=== PATIENT | male | born 1945 | race Caucasian/White ===

== ENCOUNTER 2017-08-04 23:42 | Emergency (ER) | payer MEDICARE ==
[~2017-08-04] VITALS: Ht 180.3 cm; Wt 90.5 kg
[2017-08-04 23:51] VITALS: BP_SYST 154; BP_SYST 174; BP_DIAS 81; BP_DIAS 82; PULSE 87; RESP 18; TEMP 98.6
[2017-08-05] MEDS ORDERED: APIX5TAB PO (00:15)
[2017-08-05] MEDS ORDERED: VERA80TA PO (00:15)
[2017-08-05] MEDS ORDERED: ASPIRIN 81 MG CHEW TAB PO ONE (00:30)
[2017-08-05] MEDS ORDERED: SODIUM CHLORIDE 0.9% FLUSH 10 ML FLUSH IVF PRN (00:30)
[2017-08-05 00:31] VITALS: O2SAT 97
[2017-08-05 00:36] VITALS: BP 132/84; PULSE 90; RESP 18; O2SAT 96
[2017-08-05 00:45] LABS: AUTOMATED NEUTROPHIL # 6.9 TH/MM3 (1.8-7.7); BASOPHIL # 0.1 TH/MM3 (0-0.2); EOSINOPHIL # 0.8 TH/MM3 (0-0.4); EOSINOPHIL % 5.5 % (0.0-4.0); HEMATOCRIT 48.8 % (39.0-51.0); HEMOGLOBIN 16.1 GM/DL (13.0-17.0); LYMPH % 41.2 % (9.0-44.0); LYMPHOCYTE # 6.1 TH/MM3 (1.0-4.8); MEAN CELL VOLUME 89.5 FL (80.0-100.0); MEAN CORPUSCULAR HEMOGLOBIN 29.6 PG (27.0-34.0); MEAN CORPUSCULAR HGB CONC 33.1 % (32.0-36.0); MEAN PLATELET VOLUME 10.2 FL (7.0-11.0); NEUT % 45.3 % (16.0-70.0); PLATELET COUNT 271 TH/MM3 (150-450); RED BLOOD COUNT 5.46 MIL/MM3 (4.50-5.90); RED CELL DISTRIBUTION WIDTH 14.5 % (11.6-17.2); WHITE BLOOD COUNT 14.9 TH/MM3 (4.0-11.0)
--- NOTE | 2017-08-05 00:46 | PD ---
HPI Chief Complaint: Chest Pain Time Seen by Provider: 00:13 Travel History International Travel<30 days: No Contact w/Intl Traveler<30days: No Traveled to known affect area: No History of Present Illness HPI The patient is a 71-year-old male with a history chronic of atrial fibrillation who complains of a minimal discomfort in his mid sternal area and pain in both arms. The pain in both arms started around 11 PM yesterday evening. He did have nausea and vomiting after he took an aspirin. He denies any shortness of breath, diaphoresis. He denies any syncopal or near syncopal spells. His last stress test she states was over [address] Pichardo is his temporary help agency referral clerk. The patient does smoke cigars. PFSH Past Medical History Hx Anticoagulant Therapy: Yes (eloquis) Tetanus Vaccination: > 5 Years Influenza Vaccination: No Past Surgical History Cholecystectomy: Yes Social History Alcohol Use: No Tobacco Use: Yes (1PPD) Substance Use: No Allergies-Medications (Allergen,Severity, Reaction): Coded Allergies: No Known Drug Allergies (Verified Allergy, Unknown, 08/05/17) Reported Meds & Prescriptions Reported Meds & Active Scripts Active Reported Verapamil (Verapamil HCl) 80 Mg Tab 80 Mg PO BID Eliquis (Apixaban) 5 Mg Tab 5 Mg PO BID Review of Systems Except as stated in HPI: all other systems reviewed are Neg Physical Exam Narrative GENERAL: The patient is alert, oriented 3 in minimal apparent distress with his arm aching. The arm aching is almost completely subsided in the chest pain has completely subsided. His vital signs repeated show blood pressure 154/81 but are otherwise normal. He does smell of cigar smoke. SKIN: Focused skin assessment warm/dry. HEAD: Atraumatic. Normocephalic. EYES: Pupils equal and round. No scleral icterus. No injection or drainage. ENT: No nasal bleeding or discharge. Mucous membranes pink and moist. NECK: Trachea midline. No JVD. CARDIOVASCULAR: Regular rate and rhythm. No murmur appreciated. I cannot reproduce the patient's chest pain by pressing on the chest wall. RESPIRATORY: No accessory muscle use. Clear to auscultation. Breath sounds equal bilaterally. GASTROINTESTINAL: Abdomen soft, non-tender, nondistended. Hepatic and splenic margins not palpable. MUSCULOSKELETAL: No obvious deformities. No clubbing. No cyanosis. No edema. NEUROLOGICAL: Awake and alert. No obvious cranial nerve deficits. Motor grossly within normal limits. Normal speech. PSYCHIATRIC: Appropriate mood and affect; insight and judgment normal. Data Data Last Documented VS Vital Signs Date Time Temp Pulse Resp B/P (MAP) Pulse Ox O2 Delivery O2 Flow Rate FiO2 08/05/17 00:36 90 18 132/84 (100) 96 Room Air 08/04/17 23:51 98.6 Orders Orders Electrocardiogram (08/05/17 00:30) Ckmb (Isoenzyme) Profile (08/05/17 00:30) Complete Blood Count With Diff (08/05/17 00:30) Comprehensive Metabolic Panel (08/05/17 00:30) Magnesium (Mg) (08/05/17 00:30) Prothrombin Time / Inr (Pt) (08/05/17 00:30) Act Partial Throm Time (Ptt) (08/05/17 00:30) Troponin I (08/05/17 00:30) Ecg Monitoring (08/05/17 00:30) Iv Access Insert/Monitor (08/05/17 00:30) Oximetry (08/05/17 00:30) Oxygen Administration (08/05/17 00:30) Aspirin Chew (Aspirin Chew) (08/05/17 00:30) Sodium Chloride 0.9% Flush (Ns Flush) (08/05/17 00:30) Chest, Pa & Lat (08/05/17 00:30) Labs Laboratory Tests Test 08/05/17 00:00 White Blood Count 14.9 TH/MM3 Red Blood Count 5.46 MIL/MM3 Hemoglobin 16.1 GM/DL Hematocrit 48.8 % Mean Corpuscular Volume 89.5 FL Mean Corpuscular Hemoglobin 29.6 PG Mean Corpuscular Hemoglobin Concent 33.1 % Red Cell Distribution Width 14.5 % Platelet Count 271 TH/MM3 Mean Platelet Volume 10.2 FL Neutrophils (%) (Auto) 45.3 % Lymphocytes (%) (Auto) 41.2 % Monocytes (%) (Auto) 7.0 % Eosinophils (%) (Auto) 5.5 % Basophils (%) (Auto) 1.0 % Neutrophils # (Auto) 6.9 TH/MM3 Lymphocytes # (Auto) 6.1 TH/MM3 Monocytes # (Auto) 1.0 TH/MM3 Eosinophils # (Auto) 0.8 TH/MM3 Basophils # (Auto) 0.1 TH/MM3 CBC Comment AUTO DIFF Differential Total Cells Counted 100 Neutrophils % (Manual) 48 % Lymphocytes % 44 % Monocytes % 5 % Eosinophils % 3 % Neutrophils # (Manual) 7.2 TH/MM3 Differential Comment FINAL DIFF MANUAL Platelet Estimate NORMAL Platelet Morphology Comment NORMAL Red Cell Morphology Comment NORMAL Prothrombin Time 12.7 SEC Prothromb Time International Ratio 1.3 RATIO Activated Partial Thromboplast Time 31.9 SEC Blood Urea Nitrogen 22 MG/DL Creatinine 1.40 MG/DL Random Glucose 102 MG/DL Total Protein 7.9 GM/DL Albumin 3.9 GM/DL Calcium Level 8.7 MG/DL Magnesium Level 2.0 MG/DL Alkaline Phosphatase 97 U/L Aspartate Amino Transf (AST/SGOT) 15 U/L Alanine Aminotransferase (ALT/SGPT) 16 U/L Total Bilirubin 0.4 MG/DL Sodium Level 136 MEQ/L Potassium Level 3.4 MEQ/L Chloride Level 101 MEQ/L Carbon Dioxide Level 27.5 MEQ/L Anion Gap 8 MEQ/L Estimat Glomerular Filtration Rate 50 ML/MIN Total Creatine Kinase 90 U/L Troponin I LESS THAN 0.02 NG/ML MDM Medical Decision Making Medical Screen Exam Complete: Yes Emergency Medical Condition: Yes Medical Record Reviewed: Yes Interpretation(s) The EKG shows atrial fibrillation with a controlled rate of 89. There is no acute ST elevation or depression present. The APTT is 31.9 and the ProTime is 12.7 with an INR 1.3. The complete metabolic profile shows a BUN of 22, creatinine 1.4, GFR 50 and potassium 3.4 but is otherwise unremarkable. The cardiac enzymes are normal. The white count is 14,900 but is otherwise unremarkable. Differential Diagnosis Acute coronary syndrome, chest pain etiology undetermined, electrolyte disorder, Narrative Course The patient's pain in the arms and the chest is completely resolved. I offered the patient a stress test done this morning and also mentioned that he could call Dr. Pichardo later on this morning and set up a stress test going through Dr. Pichardo. The patient strongly preferred to go to Dr. Pichardo. The patient is told if he gets this pain again he needs to call an ambulance and come immediately to the emergency department and we find nothing we will want to do the stress test here. Impression: Chest/arm pain etiology undetermined Diagnosis Primary Impression: Chest pain of unknown etiology Additional Instructions: As we discussed, if he gets the chest pain again just call the amylase and return to emergency department and we will put her in the hospital for a rule out or into the chest pain center. It is hoped that you can get a stress test soon with Dr. Pichardo. Disposition: 01 DISCHARGE HOME Condition: Stable Blaze Kathleen MD Aug 05, 2017 00:46
[2017-08-05 00:54] LABS: CHLORIDE 101 MEQ/L (98-107); SODIUM (NA) 136 MEQ/L (136-145)
[2017-08-05 00:57] LABS: ALBUMIN 3.9 GM/DL (3.4-5.0); BICARBONATE 27.5 MEQ/L (21.0-32.0); CALCIUM 8.7 MG/DL (8.5-10.1)
[2017-08-05 00:58] LABS: BLOOD UREA NITROGEN 22 MG/DL (7-18); GLUCOSE,RANDOM 102 MG/DL (74-106); INTERNATIONAL NORMALIZED RATIO 1.3 RATIO; PROTHROMBIN TIME - PATIENT 12.7 SEC (9.8-11.6)
[2017-08-05 01:01] LABS: ALT (GPT) 16 U/L (12-78); AST (GOT) 15 U/L (15-37); GLOMERULAR FILTRATION RATE 50 ML/MIN (>89)
[2017-08-05 01:02] LABS: TOTAL BILIRUBIN ADULT 0.4 MG/DL (0.2-1.0); TOTAL PROTEIN 7.9 GM/DL (6.4-8.2)
[2017-08-05 01:03] LABS: ALKALINE PHOSPHATASE 97 U/L (45-117); LYMPHOCYTES 44 % (9-44); MONOCYTES 5 % (0-8); NEUTROPHIL # MANUAL DIFF 7.2 TH/MM3 (1.8-7.7); POLYS (SEG NEUTROPHILS) 48 % (16-70)
[2017-08-05 01:06] LABS: TROPONIN I LESS THAN 0.02 NG/ML (0.02-0.05)
--- NOTE | 2017-08-05 01:18 | RADRPT ---
EXAM DATE/TIME: 08/05/2017 00:52 [facility] COMPARISON: No previous studies available for comparison. INDICATIONS : Chest pain and bilateral arm numbness. MEDICAL HISTORY : None. SURGICAL HISTORY : None. ENCOUNTER: Initial ACUITY: 1 day PAIN SCORE: 5/10 LOCATION: Bilateral chest FINDINGS: PA and lateral views of the chest demonstrate the lungs to be symmetrically aerated without evidence of mass, infiltrate or effusion. The cardiomediastinal contours are unremarkable. Osseous structure s are intact. CONCLUSION: No acute disease. Lopez Odom MD on August 05, 2017 at 1:17 Board Certified Radiologist. This report was verified electronically.
[2017-08-05 02:05] VITALS: BP 125/84; PULSE 84; RESP 18; O2SAT 97
--- NOTE | 2017-08-05 22:07 | EKG ---
Date Performed: 08/04/2017 Time Performed: 23:44:06 PTAGE: 71 years EKG: ATRIAL FIBRILLATION ABNORMAL QRS-T ANGLE ABNORMAL ECG INTERPRETATION BASED ON A DEFAULT AGE OF 40 YEARS NO PREVIOUS TRACING DOCTOR: Preston Mackenzie Interpretating Date/Time 08/05/2017 22:07:20
== END 2017-08-05 02:06 | disposition home or self-care (01) ==
LOC: PHED 23:42
DX: R07.9 Chest pain, unspecified (principal); I48.91 Unspecified atrial fibrillation; M79.601 Pain in right arm; R11.2 Nausea with vomiting, unspecified; Z79.01 Long term (current) use of anticoagulants; Z72.0 Tobacco use
CPT/HCPCS: 71046; 80053; 82550; 83735; 84484; 85007; 85027; 85610; 85730; 93005

== ENCOUNTER 2017-08-06 08:55 | Inpatient (IN) | payer MEDICARE ==
[2017-08-06] VITALS (7 sets, daily range): BP systolic 127–151; BP diastolic 67–99; PULSE 79–111; RESP 14–22; TEMP 97.5–98.4; O2SAT 94–99
[~2017-08-06] VITALS: Ht 182.9 cm; Wt 93.1 kg
[~2017-08-06 08:55] MED LIST: APIX5TAB PO; VERA80TA PO
[2017-08-06] MEDS ORDERED: SODIUM CHLORIDE 0.9% FLUSH 10 ML FLUSH IVF PRN (09:15)
[2017-08-06 09:38] LABS: AUTOMATED NEUTROPHIL # 7.1 TH/MM3 (1.8-7.7); BASOPHIL # 0.2 TH/MM3 (0-0.2); BASOPHIL % 1.4 % (0.0-2.0); EOSINOPHIL # 0.6 TH/MM3 (0-0.4); EOSINOPHIL % 4.9 % (0.0-4.0); HEMATOCRIT 50.9 % (39.0-51.0); HEMOGLOBIN 17.4 GM/DL (13.0-17.0); LYMPH % 23.8 % (9.0-44.0); LYMPHOCYTE # 2.8 TH/MM3 (1.0-4.8); MEAN CELL VOLUME 88.9 FL (80.0-100.0); MEAN CORPUSCULAR HEMOGLOBIN 30.4 PG (27.0-34.0); MEAN CORPUSCULAR HGB CONC 34.2 % (32.0-36.0); MEAN PLATELET VOLUME 9.6 FL (7.0-11.0); MONO % 9.1 % (0.0-8.0); MONOCYTE # 1.1 TH/MM3 (0-0.9); NEUT % 60.8 % (16.0-70.0); PLATELET COUNT 257 TH/MM3 (150-450); RED BLOOD COUNT 5.72 MIL/MM3 (4.50-5.90); RED CELL DISTRIBUTION WIDTH 15.2 % (11.6-17.2); WHITE BLOOD COUNT 11.7 TH/MM3 (4.0-11.0)
[2017-08-06 09:48] LABS: INTERNATIONAL NORMALIZED RATIO 1.3 RATIO; PROTHROMBIN TIME - PATIENT 13.1 SEC (9.8-11.6)
[2017-08-06 10:04] LABS: ALBUMIN 3.9 GM/DL (3.4-5.0); ALKALINE PHOSPHATASE 90 U/L (45-117); ALT (GPT) 16 U/L (12-78); AST (GOT) 21 U/L (15-37); BICARBONATE 26.5 MEQ/L (21.0-32.0); BLOOD UREA NITROGEN 14 MG/DL (7-18); CALCIUM 9.2 MG/DL (8.5-10.1); CHLORIDE 103 MEQ/L (98-107); CREATININE 1.32 MG/DL (0.60-1.30); GLOMERULAR FILTRATION RATE 53 ML/MIN (>89); GLUCOSE,RANDOM 112 MG/DL (74-106); MAGNESIUM 2.3 MG/DL (1.5-2.5); SODIUM (NA) 137 MEQ/L (136-145); TOTAL BILIRUBIN ADULT 0.6 MG/DL (0.2-1.0); TOTAL PROTEIN 7.6 GM/DL (6.4-8.2)
[2017-08-06 10:09] LABS: TROPONIN I 0.79 NG/ML (0.02-0.05)
--- NOTE | 2017-08-06 10:11 | PD ---
HPI Chief Complaint: Cardiac Complaint Time Seen by Provider: 09:12 Travel History International Travel<30 days: No Contact w/Intl Traveler<30days: No Traveled to known affect area: No History of Present Illness HPI Patient a 71-year-old male presents emergency department at the insistence of his automotive alignment specialist Dr. Pichardo for consideration of catheterization. Patient states 2 nights ago he went to lay down in suddenly had bilateral arm pain as well as tightness in the center of his chest associate with some diaphoresis increasing weakness over the past few days. He states he has never had a cardiac catheterization but did have a stress test 2 years ago with a heart group in set it with normal. Has a history of atrial fibrillation on Eliquis last took his Eliquis last night. Has not had an aspirin at today. Currently he states he is asymptomatic. Denies any chest pain or shortness of breath at this time. No nausea no vomiting. States symptoms are resolved, for the past 2 nights, contacts as above, associated signs symptoms as above, resolved PFSH Past Medical History Hx Anticoagulant Therapy: Yes (eloquis) Atrial Fibrillation: Yes (ELIQUIS) Diminished Hearing: Yes Tetanus Vaccination: Unknown ?: Not Past Surgical History Cholecystectomy: Yes Social History Alcohol Use: Yes (RARELY) Tobacco Use: Yes (1PPD) Substance Use: No Allergies-Medications (Allergen,Severity, Reaction): Coded Allergies: No Known Drug Allergies (Verified Allergy, Unknown, 08/05/17) Reported Meds & Prescriptions Reported Meds & Active Scripts Active Reported Verapamil (Verapamil HCl) 80 Mg Tab 80 Mg PO BID Eliquis (Apixaban) 5 Mg Tab 5 Mg PO BID Review of Systems Except as stated in HPI: all other systems reviewed are Neg Physical Exam Narrative GENERAL: WD/WN in nad SKIN: Focused skin assessment warm/dry. HEAD: Atraumatic. Normocephalic. EYES: Pupils equal and round. No scleral icterus. No injection or drainage. ENT: No nasal bleeding or discharge. Mucous membranes pink and moist. NECK: Trachea midline. No JVD. CARDIOVASCULAR: Regular rate and rhythm. No murmur appreciated. 2+ bilateral pulses in all 4 extremities, no MGR RESPIRATORY: No accessory muscle use. Clear to auscultation. Breath sounds equal bilaterally. GASTROINTESTINAL: Abdomen soft, non-tender, nondistended. Hepatic and splenic margins not palpable. MUSCULOSKELETAL: No obvious deformities. No clubbing. No cyanosis. No edema. NEUROLOGICAL: Awake and alert. No obvious cranial nerve deficits. Motor grossly within normal limits. Normal speech. PSYCHIATRIC: Appropriate mood and affect; insight and judgment normal. Data Data Last Documented VS Vital Signs Date Time Temp Pulse Resp B/P (MAP) Pulse Ox O2 Delivery O2 Flow Rate FiO2 08/06/17 09:20 98 Room Air 08/06/17 09:20 101 22 127/90 (102) 08/06/17 09:00 98.4 Orders Orders Electrocardiogram (08/06/17 09:12) Ckmb (Isoenzyme) Profile (08/06/17 09:12) Complete Blood Count With Diff (08/06/17 09:12) Comprehensive Metabolic Panel (08/06/17 09:12) Magnesium (Mg) (08/06/17 09:12) Prothrombin Time / Inr (Pt) (08/06/17 09:12) Act Partial Throm Time (Ptt) (08/06/17 09:12) Troponin I (08/06/17 09:12) Ecg Monitoring (08/06/17 09:12) Iv Access Insert/Monitor (08/06/17 09:12) Oximetry (08/06/17 09:12) Oxygen Administration (08/06/17 09:12) Sodium Chloride 0.9% Flush (Ns Flush) (08/06/17 09:15) CKMB (08/06/17 09:15) CKMB% (08/06/17 09:15) Aspirin Chew (Aspirin Chew) (08/06/17 10:45) Consult Cardiology (08/06/17 ) Labs Laboratory Tests Test 08/06/17 09:15 White Blood Count 11.7 TH/MM3 Red Blood Count 5.72 MIL/MM3 Hemoglobin 17.4 GM/DL Hematocrit 50.9 % Mean Corpuscular Volume 88.9 FL Mean Corpuscular Hemoglobin 30.4 PG Mean Corpuscular Hemoglobin Concent 34.2 % Red Cell Distribution Width 15.2 % Platelet Count 257 TH/MM3 Mean Platelet Volume 9.6 FL Neutrophils (%) (Auto) 60.8 % Lymphocytes (%) (Auto) 23.8 % Monocytes (%) (Auto) 9.1 % Eosinophils (%) (Auto) 4.9 % Basophils (%) (Auto) 1.4 % Neutrophils # (Auto) 7.1 TH/MM3 Lymphocytes # (Auto) 2.8 TH/MM3 Monocytes # (Auto) 1.1 TH/MM3 Eosinophils # (Auto) 0.6 TH/MM3 Basophils # (Auto) 0.2 TH/MM3 CBC Comment DIFF FINAL Differential Comment Prothrombin Time 13.1 SEC Prothromb Time International Ratio 1.3 RATIO Activated Partial Thromboplast Time 31.5 SEC Blood Urea Nitrogen 14 MG/DL Creatinine 1.32 MG/DL Random Glucose 112 MG/DL Total Protein 7.6 GM/DL Albumin 3.9 GM/DL Calcium Level 9.2 MG/DL Magnesium Level 2.3 MG/DL Alkaline Phosphatase 90 U/L Aspartate Amino Transf (AST/SGOT) 21 U/L Alanine Aminotransferase (ALT/SGPT) 16 U/L Total Bilirubin 0.6 MG/DL Sodium Level 137 MEQ/L Potassium Level 4.3 MEQ/L Chloride Level 103 MEQ/L Carbon Dioxide Level 26.5 MEQ/L Anion Gap 8 MEQ/L Estimat Glomerular Filtration Rate 53 ML/MIN Total Creatine Kinase 101 U/L Creatine Kinase MB 4.7 NG/ML Troponin I 0.79 NG/ML MDM Medical Decision Making Medical Screen Exam Complete: Yes Emergency Medical Condition: Yes Differential Diagnosis ACS, STEMI, NSTEMI, Narrative Course Patient 71-year-old male roomed in the emergency department, asymptomatic, vital signs stable, atrial fibrillation on monitor but rate relatively controlled, patient discussed with Dr. Gurdeep toth covering for Dr. pichardo, recommends holding Eliquis in when Eliquis his out of his system will proceed with cardiac catheterization no heparinization for now, he has given full dose of aspirin, no chest pain while in the emergency department. Had chest x-ray 2 days ago at [facility] which was not negative. Will be admitted to the resident service under Dr. Ragsdale for CIC. Diagnosis Primary Impression: NSTEMI (non-ST elevated myocardial infarction) Admitting Information Admitting Physician Requests: Admit Condition: Stable Man Hung MD Aug 06, 2017 10:11
[2017-08-06] MEDS ORDERED: ASPIRIN 81 MG CHEW TAB CHEW ONE (10:45)
--- NOTE | 2017-08-06 11:41 | HHI.HP ---
HPI Service Family Medicine Primary Care Physician No Primary Care Physician Admission Diagnosis NSTEMI Diagnoses: International Travel<30 Days: No Contact w/Intl Traveler<30days: No Known Affected Area: No History of Present Illness Patient is a 71-year-old Male with PMHx of A. fib (on Eliquis) that was sent to ED by his email producer (Dr. Pichardo) for cath procedure due to sxs suggestive of [place] that the patient had 2 days ago. Patient reports that 2 days ago went he to [facility] ED after he developed aching in both arms, chest tightness, and cold sweats. At that ED visit he was told he was not having a heart attack and was offered to have stress test done which he declined and instead decided to follow up with his email producer out patient. Currently patient is asymptomatic. Denies CP, SOB, N/V or diaphoresis. He went to see his email producer this morning and based on the sxs he had 2 days ago his email producer suggested he come to the ED for a heart cath procedure. Of note pt stated he took Eliquis 5mg last night. In the ED pt found to be tachycardic HR 100s with elevated troponin of 0.79. Pt received an asa 325mg and cardiology was consulted. Review of Systems Constitutional: DENIES: Fatigue, Fever, Weight loss, Chills, Change in appetite , Night Sweats Eyes: DENIES: Blurred vision, Vision loss Ears, nose, mouth, throat: DENIES: Hearing loss, Throat pain, Ear Pain Respiratory: DENIES: Cough, Shortness of breath Cardiovascular: DENIES: Chest pain, Palpitations Gastrointestinal: DENIES: Abdominal pain, Nausea, Vomiting Genitourinary: DENIES: Urinary frequency, Dysuria Musculoskeletal: DENIES: Joint pain, Joint Swelling, Back pain Integumentary: DENIES: Rash Hematologic/lymphatic: DENIES: Bruising Neurologic: DENIES: Headache, Localized weakness Past Family Social History Past Medical History A. fib Past Surgical History Cholecystectomy, Reported Medications verapamil 80mg QD Eliquis 5mg QD Allergies: Coded Allergies: No Known Drug Allergies (Verified Allergy, Unknown, 08/05/17) Family History Father- [place] Social History -Pt is retired -Lives with -Smokin pack per day for 50yrs -Denies alcohol or illicit drugs use Physical Exam Vital Signs Vital Signs Date Time Temp Pulse Resp B/P (MAP) Pulse Ox O2 Delivery O2 Flow Rate FiO2 08/06/17 11:09 89 15 142/90 (107) 98 Room Air 08/06/17 09:20 98 Room Air 08/06/17 09:20 101 22 127/90 (102) 97 Room Air 08/06/17 09:00 98.4 102 14 151/99 (116) 99 Physical Exam GENERAL: This is a well-nourished, well-developed patient, in no apparent distress. SKIN: No rashes, ecchymoses or lesions. Cool and dry. HEAD: Atraumatic. Normocephalic. No temporal or scalp tenderness. EYES: Pupils equal round and reactive. Extraocular motions intact. No scleral icterus. No injection or drainage. ENT: Nose without bleeding, purulent drainage or septal hematoma. Throat without erythema, tonsillar hypertrophy or exudate. Uvula midline. Airway patent. NECK: Trachea midline. No JVD or lymphadenopathy. Supple, nontender, no meningeal signs. CARDIOVASCULAR: Normal S1 and S2. Irregular rhythm without murmurs, gallops, or rubs. RESPIRATORY: Clear to auscultation. Breath sounds equal bilaterally. No wheezes , rales, or rhonchi. GASTROINTESTINAL: Abdomen soft, non-tender, nondistended. No hepato-splenomegaly , or palpable masses. No guarding. MUSCULOSKELETAL: Extremities without clubbing, cyanosis, or edema. No joint tenderness, effusion, or edema noted. No calf tenderness. Negative Homans sign bilaterally. +2 DP pulses BL NEUROLOGICAL: Awake and alert. Cranial nerves II through XII intact. Motor and sensory grossly within normal limits. Five out of 5 muscle strength in all muscle groups. Normal speech. Laboratory Laboratory Tests Test 08/06/17 09:15 White Blood Count 11.7 Red Blood Count 5.72 Hemoglobin 17.4 Hematocrit 50.9 Mean Corpuscular Volume 88.9 Mean Corpuscular Hemoglobin 30.4 Mean Corpuscular Hemoglobin Concent 34.2 Red Cell Distribution Width 15.2 Platelet Count 257 Mean Platelet Volume 9.6 Neutrophils (%) (Auto) 60.8 Lymphocytes (%) (Auto) 23.8 Monocytes (%) (Auto) 9.1 Eosinophils (%) (Auto) 4.9 Basophils (%) (Auto) 1.4 Neutrophils # (Auto) 7.1 Lymphocytes # (Auto) 2.8 Monocytes # (Auto) 1.1 Eosinophils # (Auto) 0.6 Basophils # (Auto) 0.2 CBC Comment DIFF FINAL Differential Comment Prothrombin Time 13.1 Prothromb Time International Ratio 1.3 Activated Partial Thromboplast Time 31.5 Blood Urea Nitrogen 14 Creatinine 1.32 Random Glucose 112 Total Protein 7.6 Albumin 3.9 Calcium Level 9.2 Magnesium Level 2.3 Alkaline Phosphatase 90 Aspartate Amino Transf (AST/SGOT) 21 Alanine Aminotransferase (ALT/SGPT) 16 Total Bilirubin 0.6 Sodium Level 137 Potassium Level 4.3 Chloride Level 103 Carbon Dioxide Level 26.5 Anion Gap 8 Estimat Glomerular Filtration Rate 53 Total Creatine Kinase 101 Creatine Kinase MB 4.7 Troponin I 0.79 Result Diagram: 08/06/1791408/06/17914 Caprini VTE Risk Assessment Caprini VTE Risk Assessment: Mod/High Risk (score >= 2) Caprini Risk Assessment Model Point Value = 1 Point Value = 2 Point Value = 3 Point Value = 5 Age 41-60 Minor surgery BMI > 25 kg/m2 Swollen legs Varicose veins or History of unexplained or recurrent spontaneous Oral contraceptives or hormone replacement Sepsis (< 1 month) Serious lung disease, including pneumonia (< 1 month) Abnormal pulmonary function Acute myocardial infarction Congestive heart failure (< 1 month) History of inflammatory bowel disease Medical patient at bed rest Age 61-74 Arthroscopic surgery Major open surgery (> 45 min) Laparoscopic surgery (> 45 min) Malignancy Confined to bed (> 72 hours) Immobilizing plaster cast Central venous access Age >= 75 History of VTE Family history of VTE Factor V Leiden Prothrombin [id number] Lupus anticoagulant Anticardiolipin antibodies Elevated serum homocysteine Heparin-induced thrombocytopenia Other congenital or acquired thrombophilia Stroke (< 1 month) Elective arthroplasty Hip, pelvis, or leg fracture Acute spinal cord injury (< 1 month) Prophylaxis Regimen Total Risk Factor Score Risk Level Prophylaxis Regimen 0-1 Low Early ambulation 2 Moderate Order ONE of the following: *Sequential Compression Device (SCD) *Heparin 5000 units SQ BID 3-4 Higher Order ONE of the following medications: *Heparin 5000 units SQ TID *Enoxaparin/Lovenox 40 mg SQ daily (WT < 150 kg, CrCl > 30 mL/min) *Enoxaparin/Lovenox 30 mg SQ daily (WT < 150 kg, CrCl > 10-29 mL/min) *Enoxaparin/Lovenox 30 mg SQ BID (WT < 150 kg, CrCl > 30 mL/min) AND/OR *Sequential Compression Device (SCD) 5 or more Highest Order ONE of the following medications: *Heparin 5000 units SQ TID (Preferred with Epidurals) *Enoxaparin/Lovenox 40 mg SQ daily (WT < 150 kg, CrCl > 30 mL/min) *Enoxaparin/Lovenox 30 mg SQ daily (WT < 150 kg, CrCl > 10-29 mL/min) *Enoxaparin/Lovenox 30 mg SQ BID (WT < 150 kg, CrCl > 30 mL/min) AND *Sequential Compression Device (SCD) Assessment and Plan Assessment and Plan Patient is a 71-year-old Male with PMHx of A. fib (on Eliquis) that was sent to ED by his email producer (Dr. Pichardo) for cath procedure due to sxs of CP, diaphoresis and BL upper extremity aches that the patient experienced 2 days ago. Pt is currently asymptomatic. Code Status Full code Discussed Condition With SDW Dr. Han Problem List: (1) NSTEMI (non-ST elevated myocardial infarction) ICD Codes: I21.4 - Non-ST elevation (NSTEMI) myocardial infarction Status: Acute Plan: Pt found to be tachycardic with elevated troponin x1 of 0.79, currently asymptomatic. -hx of chest tightness, diaphoresis, BL arm aching 2 days ago -c/w asa 325mg QD -EKG: A fib, rate controlled, no significant change from prior ekg -trend troponin and EKG Cardiology consulted, appreciate recommendations -plan for cardiac cath on Wednesday -no heparin per cardio (2) Atrial fibrillation ICD Codes: I48.91 - Unspecified atrial fibrillation Plan: -hold eliquis -pt placed on tele -continue to monitor -consider changing verapamil to beta sarthak (3) Nutrition, metabolism, and development symptoms ICD Codes: R63.8 - Other symptoms and signs concerning food and fluid intake Plan: Fluids: Electrolytes: Nutrition: heart healthy Physician Certification 2 Midnight Certification Type: Admission for Inpatient Services Order for Inpatient Services The services are ordered in accordance with Medicare regulations or non- Medicare payer requirements, as applicable. In the case of services not specified as inpatient-only, they are appropriately provided as inpatient services in accordance with the 2-midnight benchmark. Estimated LOS (days): 4 days is the estimated time the patient will need to remain in the hospital, assuming treatment plan goals are met and no additional complications. Post-Hospital Plan: Not yet determined Problem Qualifiers (1) Atrial fibrillation: Qualified Codes: I48.2 - Chronic atrial fibrillation Irais Yung MD, R1 Aug 06, 2017 11:41
[2017-08-06] MEDS ORDERED: VERAPAMIL HCL 80 MG TAB PO SCH (12:00)
--- NOTE | 2017-08-06 12:01 | EKG ---
Date Performed: 08/06/2017 Time Performed: 09:14:54 PTAGE: 71 years EKG: ATRIAL FIBRILLATION ABNORMAL RHYTHM ECG No significant change from prior electrocardiogram. PREVIOUS TRACING : 08/04/2017 23.44 DOCTOR: Jim Pichardo Interpretating Date/Time 08/06/2017 11:59:57
[2017-08-06] MEDS ORDERED: MAGNESIUM HYDROXIDE SUSP 30 ML CUP PO PRN (12:15)
[2017-08-06] MEDS ORDERED: NALOXONE HCL 0.4 MG/ML AMP IV PUSH PRN (12:15)
[2017-08-06] MEDS ORDERED: ONDANSETRON HCL 4 MG/2 ML VIAL IVP PRN (12:15)
[2017-08-06] MEDS ORDERED: ZOLPIDEM TARTRATE 5 MG TAB PO PRN (12:15)
[2017-08-06] MEDS ORDERED: SENNOSIDES 8.6 MG TAB PO PRN (12:15)
[2017-08-06] MEDS ORDERED: ACETAMINOPHEN 325 MG TAB PO PRN (12:15)
[2017-08-06] MEDS ORDERED: BISACODYL 10 MG SUPP RECTAL PRN (12:15)
[2017-08-06] MEDS ORDERED: SODIUM CHLORIDE 0.9% FLUSH 10 ML FLUSH IV FLUSH PRN (12:15)
[2017-08-06] MEDS ORDERED: LACTULOSE SYRUP 20 GM/30 ML CUP PO PRN (12:15)
[2017-08-06] MEDS ORDERED: DIAZEPAM 10 MG TAB PO SCH (15:15)
[2017-08-06] MEDS ORDERED: MIDAZOLAM HCL 2 MG/2 ML VIAL IV PUSH SCH (15:15)
[2017-08-06] MEDS ORDERED: diphenhydrAMINE HCL 50 MG CAP PO SCH (15:15)
[2017-08-06] MEDS: ATORVASTATIN 40 MG TAB PO SCH (15:36)
--- NOTE | 2017-08-06 16:32 | MB ---
cc: CRISTIANO SO M.D. DATE OF CONSULTATION: 08/06/2017 REASON FOR CONSULTATION: Unstable angina. HISTORY OF PRESENT ILLNESS: The patient is a 71-year-old white male, followed in our office by Dr. Jim Pichardo, with a history of chronic atrial fibrillation, COPD, hyperlipidemia who was sent to the hospital from Dr. Pichardo's office due to symptoms most suggestive of unstable angina. Two evenings ago he developed fairly severe upper arm discomfort bilaterally. At that time, he had no dyspnea or diaphoresis but felt mildly lightheaded and slightly nauseated. He believes the episode of bilateral arm discomfort lasted about an hour and was associated with minimal substernal chest "tightness". The patient was recommended hospitalization at that time in the [facility] but he declined and preferred to see Dr. Pichardo in the office. The patient states he had recurrent bilateral arm discomfort yesterday intermittently for several hours lasting up to 20 minutes. Once again, the bilateral arm discomfort was associated with slight chest tightness. He denies pleurisy, syncope, near-syncope, palpitations, pedal edema, paroxysmal nocturnal dyspnea. Today he has had no further chest or arm discomfort. PAST MEDICAL HISTORY: 1. Chronic atrial fibrillation. 2. COPD. 3. Hyperlipidemia CARDIAC MEDICATIONS AT HOME: 1. Verapamil 80 milligrams twice a day. 2. Apixaban 5 milligrams twice a day. ALLERGIES NO KNOWN DRUG ALLERGIES. FAMILY HISTORY: Noncontributory. SOCIAL HISTORY: The patient smokes about a pack of cigarettes per day. Rarely he drinks alcohol. REVIEW OF SYSTEMS: Review of systems as in the history of present illness otherwise negative or noncontributory. He also denies headache, abdominal pain, melena, dyspepsia, bright red blood per rectum, wheezing, cough. PHYSICAL EXAMINATION: VITAL SIGNS: On physical examination, his blood pressure 136/80 with a pulse of 110, respirations 20. GENERAL: In general, he is a well-developed, well-nourished white male in no acute distress. HEAD, EYES, EARS, NOSE, THROAT: On HEENT examination, jugular venous pressure is normal. Carotid pulses are 2+ bilaterally and without bruits. CHEST: Examination of the chest reveals unlabored respiratory effort with clear lung amos. CARDIAC: On cardiac examination he has an irregularly irregular rhythm without S3 or murmur. ABDOMEN: On abdominal examination, he has a soft, nontender abdomen. Bowel sounds are present. There is no definite hepatosplenomegaly. EXTREMITIES: Examination of the extremities reveals no clubbing, cyanosis or edema. Peripheral pulses are normal throughout. EKGS: EKG shows atrial fibrillation, otherwise normal EKG. LABORATORY DATA: Laboratory data includes WBC 11.7, hemoglobin 17.4, platelets 257,000. Potassium 4.3, BUN 14, creatinine 1.32. Troponin 0.79, CK 101. IMAGING STUDIES: Chest x-ray shows no acute disease. IMPRESSION: Unstable angina, possible acute ipk-S-K-elevation myocardial infarction in a 71-year-old white male with a history of chronic atrial fibrillation, COPD, hyperlipidemia. Today he has been angina-free. Initial troponin level was negative for infarction, although the second level is slightly elevated at 0.79. CKs remain negative for myocardial infarction. EKG shows no acute S-T segment or T-wave changes. The patient clearly has had symptoms consistent with angina at rest. Because of the instability of his symptoms, he has been recommended cardiac catheterization with possible percutaneous coronary intervention, the risks of which have been explained to him including but not limited to , myocardial infarction, stroke, arrhythmia, bleeding, infection, renal failure. He agrees to proceed. RECOMMENDATIONS: 1. Cardiac catheterization on Wednesday. 2. Continue to hold his Eliquis. 3. Overall would favor changing his verapamil to a beta sarthak. 4. Check a fasting lipid profile. 5. Daily aspirin. Cristiano So MD Janell/C /2:57 PM /4:09 PM THANG
[2017-08-06] MEDS: SODIUM CHLOR 0.9% 1000 ML INJ 1,000 ML IV SCH (16:37)
[2017-08-06] MEDS: SODIUM CHLORIDE 0.9% FLUSH 10 ML FLUSH IV FLUSH SCH (21:00)
[2017-08-06] MEDS: METOPROLOL TARTRATE 50 MG TAB PO SCH (22:14)
[2017-08-07] VITALS: BP 120/82; PULSE 84; PULSE 86; RESP 20; TEMP 97.6; O2SAT 94
[2017-08-07 02:30] LABS: ALBUMIN 3.3 GM/DL (3.4-5.0); ALT (GPT) 16 U/L (12-78); AST (GOT) 17 U/L (15-37); BICARBONATE 24.2 MEQ/L (21.0-32.0); BLOOD UREA NITROGEN 12 MG/DL (7-18); CALCIUM 8.4 MG/DL (8.5-10.1); CHLORIDE 106 MEQ/L (98-107); CHOLESTEROL 203 MG/DL (120-200); CREATININE 1.01 MG/DL (0.60-1.30); GLOMERULAR FILTRATION RATE 72 ML/MIN (>89); GLUCOSE,RANDOM 86 MG/DL (74-106); SODIUM (NA) 140 MEQ/L (136-145); TRIGLYCERIDES 165 MG/DL (42-150)
[2017-08-07 02:35] LABS: ALKALINE PHOSPHATASE 80 U/L (45-117); CHOLESTEROL/ HDL RATIO 7.57 RATIO; HDL CHOLESTEROL 26.8 MG/DL (40.0-60.0); LDL CHOLESTEROL 143 MG/DL (0-99); TOTAL BILIRUBIN ADULT 0.8 MG/DL (0.2-1.0); TOTAL PROTEIN 6.8 GM/DL (6.4-8.2)
[2017-08-07 02:37] LABS: TROPONIN I 0.98 NG/ML (0.02-0.05)
[2017-08-07] MEDS: SODIUM CHLOR 0.9% 1000 ML INJ 1,000 ML IV SCH ×3 (02:57→21:05)
[2017-08-07 04:00] VITALS: BP 119/63; PULSE 72; PULSE 83; RESP 20; TEMP 98.2; O2SAT 93
[2017-08-07 08:00] VITALS: BP 104/66; PULSE 71; RESP 16; TEMP 98; O2SAT 92
[2017-08-07] MEDS: SODIUM CHLORIDE 0.9% FLUSH 10 ML FLUSH IV FLUSH SCH ×2 (08:12→21:00)
[2017-08-07] MEDS: ASPIRIN 325 MG TAB PO SCH (09:16)
[2017-08-07] MEDS: ATORVASTATIN 40 MG TAB PO SCH (09:16)
[2017-08-07] MEDS: METOPROLOL TARTRATE 50 MG TAB PO SCH ×2 (09:16→21:36)
[2017-08-07 10:28] LABS: AUTOMATED NEUTROPHIL # 6.7 TH/MM3 (1.8-7.7); BASOPHIL # 0.1 TH/MM3 (0-0.2); BASOPHIL % 1.3 % (0.0-2.0); EOSINOPHIL # 0.5 TH/MM3 (0-0.4); EOSINOPHIL % 4.7 % (0.0-4.0); HEMATOCRIT 45.6 % (39.0-51.0); HEMOGLOBIN 15.6 GM/DL (13.0-17.0); LYMPH % 22.9 % (9.0-44.0); LYMPHOCYTE # 2.5 TH/MM3 (1.0-4.8); MEAN CELL VOLUME 88.1 FL (80.0-100.0); MEAN CORPUSCULAR HEMOGLOBIN 30.2 PG (27.0-34.0); MEAN CORPUSCULAR HGB CONC 34.2 % (32.0-36.0); MEAN PLATELET VOLUME 9.9 FL (7.0-11.0); MONO % 8.8 % (0.0-8.0); MONOCYTE # 0.9 TH/MM3 (0-0.9); NEUT % 62.3 % (16.0-70.0); PLATELET COUNT 224 TH/MM3 (150-450); RED BLOOD COUNT 5.17 MIL/MM3 (4.50-5.90); RED CELL DISTRIBUTION WIDTH 14.7 % (11.6-17.2); WHITE BLOOD COUNT 10.7 TH/MM3 (4.0-11.0)
[2017-08-07] MEDS ORDERED: SODIUM CHLOR 0.9% 1000 ML INJ 1,000 ML IV SCH (11:12)
[2017-08-07] MEDS ORDERED: MIDAZOLAM HCL 2 MG/2 ML VIAL IV PUSH SCH (11:15)
[2017-08-07] MEDS ORDERED: diphenhydrAMINE HCL 50 MG CAP PO SCH (11:15)
[2017-08-07] MEDS ORDERED: DIAZEPAM 10 MG TAB PO SCH (11:15)
--- NOTE | 2017-08-07 11:26 | PD.CARD.PN ---
Subjective Subjective Remarks No arm or CP, dyspnea, palpitations, dizziness. Slept very well. Objective Medications Item Value Date Time Metoprolol 50 mg 08/06/17 2100 Tartrate Q12HR/PO 08/07/17 0916 (Lopressor) Aspirin 325 mg 08/07/17 0900 (Aspirin) DAILY/PO 08/07/17 0916 Atorvastatin 40 mg 08/06/17 1445 Calcium DAILY/PO 08/07/17 0916 (Lipitor) Current Medications Medications (Trade) Dose Ordered Sig/Arpit Route Start Time Stop Time Status Last Admin (NS Flush) 2 ml UNSCH PRN IV FLUSH 08/06/17 12:15 (NS Flush) 2 ml BID IV FLUSH 08/06/17 21:00 (Tylenol) 650 mg Q4H PRN PO 08/06/17 12:15 (Zofran Inj) 4 mg Q6H PRN IVP 08/06/17 12:15 (Ambien) 5 mg HS PRN PO 08/06/17 12:15 (Narcan Inj) 0.4 mg UNSCH PRN IV PUSH 08/06/17 12:15 (Milk Of Magnesia Liq) 30 ml Q12H PRN PO 08/06/17 12:15 (Senokot) 17.2 mg Q12H PRN PO 08/06/17 12:15 (Dulcolax Supp) 10 mg DAILY PRN RECTAL 08/06/17 12:15 (Lactulose Liq) 30 ml DAILY PRN PO 08/06/17 12:15 (Aspirin) 325 mg DAILY PO 08/07/17 09:00 08/07/17 09:16 (Lipitor) 40 mg DAILY PO 08/06/17 14:45 08/07/17 09:16 (Lopressor) 50 mg Q12HR PO 08/06/17 21:00 08/07/17 09:16 Sodium Chloride 1,000 ml @ 100 mls/hr Q10H IV 08/06/17 15:05 08/11/17 15:04 08/07/17 02:57 (Benadryl) 50 mg GRADES 1 THRU 6 HOME TEACHER PO 08/06/17 15:15 08/10/17 15:14 (Valium) 10 mg GRADES 1 THRU 6 HOME TEACHER PO 08/06/17 15:15 08/10/17 15:14 (Versed Inj) 1 mg GRADES 1 THRU 6 HOME TEACHER IV PUSH 08/06/17 15:15 08/10/17 15:14 Sodium Chloride 1,000 ml @ 100 mls/hr Q10H IV 08/07/17 11:12 08/12/17 11:11 (Benadryl) 50 mg GRADES 1 THRU 6 HOME TEACHER PO 08/07/17 11:15 08/11/17 11:14 (Valium) 10 mg GRADES 1 THRU 6 HOME TEACHER PO 08/07/17 11:15 08/11/17 11:14 (Versed Inj) 1 mg GRADES 1 THRU 6 HOME TEACHER IV PUSH 08/07/17 11:15 08/11/17 11:14 Vital Signs / I&O Vital Signs Date Time Temp Pulse Resp B/P (MAP) Pulse Ox O2 Delivery O2 Flow Rate FiO2 08/07/17 08:00 98.0 71 16 104/66 (79) 92 08/07/17 04:00 72 08/07/17 04:00 98.2 83 20 119/63 (81) 93 08/07/17 00:00 97.6 86 20 120/82 (95) 94 08/07/17 00:00 84 08/06/17 20:00 98.3 79 18 127/67 (87) 94 08/06/17 20:00 84 08/06/17 17:00 86 08/06/17 16:00 97.5 86 18 146/78 (100) 95 08/06/17 14:51 08/06/17 13:32 111 20 136/81 (99) 96 Room Air I/O 08/06/17 08/06/17 08/06/17 08/07/17 08/07/17 08/07/17 07:00 15:00 23:00 07:00 15:00 23:00 Intake Total 354 ml 1983 ml Output Total 2100 ml Balance 354 ml -117 ml Intake Oral 960 ml IV Total 354 ml 1023 ml Output Urine Total 2100 ml Physical Exam GENERAL: Well developed, well nourished. No acute distress. HEENT: Jugular venous pressure is normal. CHEST: Lungs clear to auscultation bilaterally. Unlabored respiratory effort. CARDIAC: Regular rate and rhythm without S3, S4, or murmur. ABDOMEN: Soft, nontender, no hepatosplenomegaly. Bowel sounds present. EXTREMITIES: No clubbing, cyanosis, or edema. Laboratory Laboratory Tests Test 08/06/17 19:45 08/07/17 01:52 08/07/17 09:56 Troponin I 1.05 NG/ML 0.98 NG/ML Blood Urea Nitrogen 12 MG/DL Creatinine 1.01 MG/DL Random Glucose 86 MG/DL Total Protein 6.8 GM/DL Albumin 3.3 GM/DL Calcium Level 8.4 MG/DL Alkaline Phosphatase 80 U/L Aspartate Amino Transf (AST/SGOT) 17 U/L Alanine Aminotransferase (ALT/SGPT) 16 U/L Total Bilirubin 0.8 MG/DL Sodium Level 140 MEQ/L Potassium Level 3.9 MEQ/L Chloride Level 106 MEQ/L Carbon Dioxide Level 24.2 MEQ/L Anion Gap 10 MEQ/L Estimat Glomerular Filtration Rate 72 ML/MIN Triglycerides Level 165 MG/DL Cholesterol Level 203 MG/DL LDL Cholesterol 143 MG/DL HDL Cholesterol 26.8 MG/DL Cholesterol/HDL Ratio 7.57 RATIO White Blood Count 10.7 TH/MM3 Red Blood Count 5.17 MIL/MM3 Hemoglobin 15.6 GM/DL Hematocrit 45.6 % Mean Corpuscular Volume 88.1 FL Mean Corpuscular Hemoglobin 30.2 PG Mean Corpuscular Hemoglobin Concent 34.2 % Red Cell Distribution Width 14.7 % Platelet Count 224 TH/MM3 Mean Platelet Volume 9.9 FL Neutrophils (%) (Auto) 62.3 % Lymphocytes (%) (Auto) 22.9 % Monocytes (%) (Auto) 8.8 % Eosinophils (%) (Auto) 4.7 % Basophils (%) (Auto) 1.3 % Neutrophils # (Auto) 6.7 TH/MM3 Lymphocytes # (Auto) 2.5 TH/MM3 Monocytes # (Auto) 0.9 TH/MM3 Eosinophils # (Auto) 0.5 TH/MM3 Basophils # (Auto) 0.1 TH/MM3 CBC Comment DIFF FINAL Differential Comment Assessment and Plan Problem List: (1) NSTEMI (non-ST elevated myocardial infarction) ICD Codes: I21.4 - Non-ST elevation (NSTEMI) myocardial infarction Status: Acute Plan: Stable overnight. No further angina. Troponin levels c/w NC. Rec continue beta sarthak, aspirin. Cath in am. (2) Chronic atrial fibrillation ICD Codes: I48.2 - Chronic atrial fibrillation Status: Chronic Plan: Stable, chronic atrial fib. Eliquis on hold until after cath. (3) Hyperlipidemia ICD Codes: E78.5 - Hyperlipidemia, unspecified Status: Chronic Plan: Very suboptimal lipid profile. Rec increase atorvastatin dosing. Code Status full code Discussed Condition With patient and Problem Qualifiers (1) Hyperlipidemia: Qualified Codes: E78.2 - Mixed hyperlipidemia Clovis Huitron MD Aug 07, 2017 11:26
[2017-08-07 12:00] VITALS: BP 108/76; PULSE 69; RESP 18; TEMP 97.4; O2SAT 94
--- NOTE | 2017-08-07 12:29 | HHI.FPPN ---
Subjective Remarks Attending admission note: Patient seen with resident staff. 71-year-old gentleman followed by Dr. Pichardo admitted for tonight history of bilateral arm pain associated with tightness in the chest, some diaphoresis, some mild nausea with no vomiting. Patient has a history of atrial fibrillation previously on Eliquis. No family history premature cardiovascular disease, hypertension, diabetes, tobacco usage for treated hyperlipidemia. Objective Vitals Vital Signs Date Time Temp Pulse Resp B/P (MAP) Pulse Ox O2 Delivery O2 Flow Rate FiO2 08/07/17 08:00 98.0 71 16 104/66 (79) 92 08/07/17 04:00 72 08/07/17 04:00 98.2 83 20 119/63 (81) 93 08/07/17 00:00 97.6 86 20 120/82 (95) 94 08/07/17 00:00 84 08/06/17 20:00 98.3 79 18 127/67 (87) 94 08/06/17 20:00 84 08/06/17 17:00 86 08/06/17 16:00 97.5 86 18 146/78 (100) 95 08/06/17 14:51 08/06/17 13:32 111 20 136/81 (99) 96 Room Air I/O 08/06/17 08/06/17 08/06/17 08/07/17 08/07/17 08/07/17 07:00 15:00 23:00 07:00 15:00 23:00 Intake Total 354 ml 1983 ml Output Total 2100 ml Balance 354 ml -117 ml Intake Oral 960 ml IV Total 354 ml 1023 ml Output Urine Total 2100 ml Result Diagram: 08/07/17 0956 08/07/17 0152 Objective Remarks Vital signs noted. Gen. appearance: Very healthy-appearing gentleman, normal affect, good eye contact, pleasant in conversation. HEENT: Grossly nonlocalizing. Lungs: Clear to auscultation. Cardiac: Irregular rhythm, no S3, soft systolic left sternal border. Abdomen: Soft and benign, no masses or organomegaly appreciated on palpation. Extremities: Warm and dry, no ankle edema. Bounding distal pulses. A/P Assessment and Plan Clinical attending assessment: 71-year-old gentleman admitted with a history strongly consistent with angina pectoris. Risk factors reviewed, statin therapy, anticipate cardiac catheter and probable intervention. Case reviewed and discussed with the resident team. Agree with plan of care is discussed with me and documented in the resident note.Case reviewed and discussed with the resident team. Agree with plan of care is discussed with me and documented in the resident note. Problem List: (1) NSTEMI (non-ST elevated myocardial infarction) ICD Codes: I21.4 - Non-ST elevation (NSTEMI) myocardial infarction Status: Acute Plan: Pt found to be tachycardic with elevated troponin x1 of 0.79, currently asymptomatic. -hx of chest tightness, diaphoresis, BL arm aching 2 days ago -c/w asa 325mg QD -EKG: A fib, rate controlled, no significant change from prior ekg -trend troponin and EKG Cardiology consulted, appreciate recommendations -plan for cardiac cath on Wednesday -no heparin per cardio (2) Atrial fibrillation ICD Codes: I48.91 - Unspecified atrial fibrillation Plan: -hold eliquis -pt placed on tele -continue to monitor -consider changing verapamil to beta sarthak (3) Nutrition, metabolism, and development symptoms ICD Codes: R63.8 - Other symptoms and signs concerning food and fluid intake Plan: Fluids: Electrolytes: Nutrition: heart healthy Problem Qualifiers (1) Atrial fibrillation: Qualified Codes: I48.2 - Chronic atrial fibrillation Rayo Ragsdale MD Aug 07, 2017 12:29
--- NOTE | 2017-08-07 14:52 | ECHRPT ---
Indication: cp CONCLUSIONS Normal left ventricular size. The left ventricular systolic function is low normal with an estimated ejection fraction in the rang e of 50- 55%. Trace mitral valve regurgitation. There is mild tricuspid valve regurgitation. The estimated pulmonary arterial pressure is 30.6 mmHg. BP: / HR: Rhythm: MEASUREMENTS (Male / Female) Normal Values Technical Quality:Fair 2D ECHO LV Diastolic Diameter PLAX 4.8 cm 4.2 - 5.9 / 3.9 - 5.3 cm LV Systolic Diameter PLAX 3.8 cm IVS Diastolic Thickness 1.3 cm 0.6 - 1.0 / 0.6 - 0.9 cm LVPW Diastolic Thickness 1.1 cm 0.6 - 1.0 / 0.6 - 0.9 cm LV Relative Wall Thickness 0.5 RV Internal Dim ED PLAX 3.3 cm M-MODE Aortic Root Diameter MM 3.5 cm LA Systolic Diameter MM 4.8 cm LA Ao Ratio MM 1.4 AV Cusp Separation MM 1.7 cm DOPPLER LV E' Lateral Velocity 9.0 cm/s LV E' Septal Velocity 8.5 cm/s TR Peak Velocity 227.0 cm/s TR Peak Gradient 20.6 mmHg Right Atrial Pressure 10.0 mmHg Pulmonary Artery Systolic Pressu 30.6 mmHg Right Ventricular Systolic Press 30.6 mmHg FINDINGS LEFT VENTRICLE Normal left ventricular size. The left ventricular systolic function is low normal with an estimated ejection fraction in the rang e of 50- 55%. RIGHT VENTRICLE Normal right ventricular size and systolic function. LEFT ATRIUM The left atrial size is normal. RIGHT ATRIUM The right atrial size is normal. ATRIAL SEPTUM Normal atrial septal thickness without atrial level shunting by limited color doppler interrogation. AORTA The aortic root and proximal ascending aorta are normal in size on limited imaging. MITRAL VALVE Structurally normal mitral valve. Trace mitral valve regurgitation. AORTIC VALVE Trileaflet aortic valve. Trace aortic valve regurgitation. TRICUSPID VALVE Structurally normal tricuspid valve. There is mild tricuspid valve regurgitation. The estimated pulmonary arterial pressure is 30.6 mmHg. PULMONARY VALVE No pulmonary valve regurgitation or stenosis. VESSELS The inferior vena cava is normal in size. PERICARDIUM No pericardial effusion. Edson Rodrigez MD (Electronically Signed) Final Date:07 August 2017 14:51
--- NOTE | 2017-08-07 15:02 | EKG ---
Date Performed: 08/06/2017 Time Performed: 20:32:05 PTAGE: 71 years EKG: ATRIAL FIBRILLATION WITH ABERRANT CONDUCTION OR VENTRICULAR PREMATURE COMPLEXES ABNORMAL [facility] ECG Since PREVIOUS TRACING , no significant change noted PREVIOUS TRACIN08/06/2017 18.28 DOCTOR: Edson Rodrigez Interpretating Date/Time 08/07/2017 15:00:58
--- NOTE | 2017-08-07 15:02 | EKG ---
Date Performed: 08/06/2017 Time Performed: 18:28:50 PTAGE: 71 years EKG: ATRIAL FIBRILLATION WITH ABERRANT CONDUCTION OR VENTRICULAR PREMATURE COMPLEXES ABNORMAL [facility] ECG Since PREVIOUS TRACING , no significant change noted PREVIOUS TRACIN08/06/2017 09.14 DOCTOR: dEson Rodrigez Interpretating Date/Time 08/07/2017 15:00:29
[2017-08-07 16:00] VITALS: BP 119/77; PULSE 75; RESP 18; TEMP 97.3; O2SAT 92
[2017-08-07 20:00] VITALS: BP 116/67; PULSE 73; PULSE 75; RESP 21; TEMP 97.8; O2SAT 96
[2017-08-08] VITALS (10 sets, daily range): BP systolic 100–131; BP diastolic 59–78; PULSE 65–83; RESP 18–21; TEMP 97.5–98; O2SAT 95–98
[2017-08-08 04:58] LABS: CALCIUM 8.2 MG/DL (8.5-10.1)
[2017-08-08 05:07] LABS: HEMATOCRIT 43.6 % (39.0-51.0); HEMOGLOBIN 14.6 GM/DL (13.0-17.0); MEAN CELL VOLUME 89.5 FL (80.0-100.0); MEAN CORPUSCULAR HEMOGLOBIN 30.1 PG (27.0-34.0); MEAN CORPUSCULAR HGB CONC 33.6 % (32.0-36.0); MEAN PLATELET VOLUME 10.2 FL (7.0-11.0); PLATELET COUNT 220 TH/MM3 (150-450); RED BLOOD COUNT 4.87 MIL/MM3 (4.50-5.90); WHITE BLOOD COUNT 12.1 TH/MM3 (4.0-11.0)
[2017-08-08] MEDS: SODIUM CHLOR 0.9% 1000 ML INJ 1,000 ML IV SCH (07:05)
[2017-08-08] MEDS ORDERED: HEPARIN-NS/PF INJ 1,000 ML ONE (08:38)
[2017-08-08] MEDS ORDERED: MIDAZOLAM HCL 2 MG/2 ML VIAL ONE (08:55)
[2017-08-08] MEDS: METOPROLOL TARTRATE 50 MG TAB PO SCH (09:00)
[2017-08-08] MEDS: ASPIRIN 325 MG TAB PO SCH (09:00)
[2017-08-08] MEDS ORDERED: ATORVASTATIN 40 MG TAB PO SCH (09:00)
[2017-08-08] MEDS: SODIUM CHLORIDE 0.9% FLUSH 10 ML FLUSH IV FLUSH SCH (09:00)
[2017-08-08] MEDS ORDERED: ENALAPRIL MALEATE 2.5 MG TAB PO SCH (09:00)
--- NOTE | 2017-08-08 09:21 | CATHPROC ---
Nitro PDF HIS Report Study Information Study Number Admission Scheduled Start Study Start [id number] 08/06/2017 08/08/2017 Aug 08 2017 8:18AM Referring Institution Admit Source Facility Department 1 [facility] Associate Professor Of Literacy Physician and Clinical Staff Initial Clovis Cerna Fire Alarm Repairerjessica Barragan RN, Cl Fire Alarm RepairerJames Díaz,RN Recorder Fani Stone,HEALTH INFORMATICS SPECIALIST TECH2 Scrub ChristianoIzabella amaya,RT(R) Procedures Performed Procedure Location (Site) Vessel Name Angiogram LV LV Ventricle Coronary Angiograms LCA Left Coronary L Heart Cath Equipment Time Building Maintenance Mechanic Description Size Mfg Part Number Used/Scraped TRANSDUCER, TRUWAVE [id number] 08:20 TRENT BENNETT * Used W/STOCKCOCK *[id number] 09:13 [employer] MEDICAL VASCADE, FR6 CLOSURE SYSTEM FR 6\7 Used *[id number] *[id number] [id number] *[id number] *[id number] [id number] *[id number] 08:20 [employer] INDUSTRIES PACK, CCL CUSTOM * Used *[id number] 08:20 [employer] PACER PEN, SKIN DUAL W/ RULER * Used *[id number] 08:20 [employer] SHEATH, FR6.5 PRELUDE 11CM FR 6.5 038ACT Used *[id number] 08:20 [employer] MEDICAL WIRE, 3MMJ .035 180CM 180CM Used *[id number] 08:20 NAMIC MANIFOLD, 4 PORT * Used *[id number] 09:12 [employer] OMNIPAQUE, 300 MG, 50ML 50ML [id number] Used 08:20 [employer] OMNIPAQUE, 350 MG, 150ML 150ML [id number] Used [id number] 08:20 [employer] BLANKET,WARM AIR CCL * Used *[id number] History: Current Medications Medication Dosage/Unit Route Frequency Last Date/Time Taken ELIQUIS History: Allergies Allergy Reaction No Known Drug Allergies History: Risk Factors Family History of Hypertension Dyslipidemia Previous DC Previous Heart Failure Premature CAD No Yes No No No Prior Valve Prior PCI Prior CABG Surgery No No No Cerebrovascular Peripheral Artery Chronic Lung On Dialysis Diabetes Disease Disease Disease No No No Yes No History: Arrhythmias Selection Items Atrial fibrillation History: Other Current Smoker Method Packs a Day Years Used Pack Years Yes Cigarettes 1 50 50 Labs Hgb (g/dl) Hct (%) RBC (MIL/MM3) WBC (l/cumm) Platelets (thousands) 11.60-17.00 35.00-51.00 4.00-5.90 4.00-11.00 150.00-450.00 14.6 43.6 4.9 12.1 220 Glucose (mg/dl) BUN (mg/dl) Creatinine (mg/dl) BUN:Creatinine (1:x) 74.00-106.00 7.00-18.00 0.50-1.30 10.00-20.00 93 16 1.0 16 Na (meq/l) K (meq/l) Cl (meq/l) CO2 (mmol/L) Ca (mg/dl) 136.00-145.00 3.50-5.10 98.00-107.00 21.00-32.00 8.50-10.10 141 4 109 26 8.2 PT (sec) PTT (sec) INR (PTT:PT) 9.80-11.60 24.30-30.10 0.90-1.10 13.1 31.5 1.3 Troponin I (ng/ml) CPK-MB (ng/ML) 0.02-0.05 0.50-3.60 0.9 4.7 Medication Medication Total Dose (Bolus/Oral) Medication Total Dosage/Unit 1% XYLOCAINE 20 mL OXYGEN 2 l/min VERSED 2 mg Medications (Bolus/Oral) Medication Time Given Dosage/Unit Administered By Reason VERSED 08/08/2017 9:02:04 AM 2 mg Cl Barragan RN Patient arrived on 2 mg VERSED given by Cl Barragan RN in Left Antecubital via Peripheral IV. Ordere d by Clovis Huitron. 1% XYLOCAINE 08/08/2017 9:02:15 AM 20 mL Cl Barragan RN Patient arrived on 20 mL 1% XYLOCAINE given by Cl Barragan RN in Right Groin via Subcutaneous. Order ed by Clovis Huitron. OXYGEN 08/08/2017 9:03:19 AM 2 l/min Cl Barragan RN Patient arrived on 2 l/min OXYGEN given by Cl Barragan RN via Nasal. Ordered by Clovis Huitron. Medication (Drip) Medication Time Given Dosage/Unit Concentration/Unit Diluent (ml) Solution IV Solutions 08/08/2017 8:37:05 AM 0 mL (IV) 1000 NaCl .9 Patient arrived on IV Solutions given by Cl Barragan RN in Left Antecubital via Peripheral IV. Pump/ Drip Flow = 20 ml/hr using NaCl .9. Ordered by Clovis Huitron. Initial Case Assessment Cardiovascular HR NIBP Chest Pain 71 112/81 0 Edema Present Skin color Skin None Normal Warm Dry Circulatory - Right Pulses Dorsalis Pedis Femoral 3 2 Scale (0,1,2,3,4,d) Circulatory - Left Pulses Dorsalis Pedis Femoral 3 2 Scale (0,1,2,3,4,d) Neurological State Oriented to time-place- Alert Moves all extremities person Respiration - General Respiration Rate SpO2 (%) (B/min) 16 95 Final Case Assessment Cardiovascular HR NIBP Chest Pain 73 112/86 0 Edema Present Skin color Skin None Normal Warm Dry Circulatory - Right Pulses Dorsalis Pedis Femoral 3 2 Scale (0,1,2,3,4,d) Circulatory - Left Pulses Dorsalis Pedis Femoral 3 2 Scale (0,1,2,3,4,d) Neurological State Oriented to time-place- Alert Moves all extremities person Respiration - General Respiration Rate SpO2 (%) O2 (lpm) (B/min) 20 95 2 Chronological Log Time Study Chronological Log 8:36:53 Patient arrived via Bed. 8:36:54 Patient Name, D.O.B, / Armband Verified By R.N. 8:36:55 Consent signed by the physician and the patient and verified by the Associate Professor Of Literacy staff. 8:36:58 Patient has been NPO for More than 6Hrs. 8:36:58 NO Skin Breakdown- 8:37:00 Patient Warmer Placed on the Table. 8:37:01 Genia Prominences Protected 8:37:04 A # 20 IV was noted in the Antecubital (left). Grade = 0 Patient arrived on IV Solutions given by Cl Barragan RN in Left Antecubital via Peripheral IV. Pump/Drip Flow = 20 8:37:05 ml/hr using NaCl .9. Ordered by Clovis Huitron. 8:37:06 History and physical on the chart or being dictated. Vitals capture started with the following parameters, Patient=Adult, Interval=5 min, Initial Pr tiybnf=794 mmHg, 8:37:07 Deflation Rate=5 mmHg, Cuff placed on Left Arm 8:38:14 HR=71 bpm, QTYQ=764/81 mmhg, SpO2=95.0 %, Resp=16 B/min, Pain=0, Jack=10, Barros=2 Assessment: Initial Case, HR=71 BPM, BSUJ=923/81 mmhg, Chest Pain=0, Edema=None, Color=Normal, Skin = Warm, Dry Right Pulses: Dave Ped=3, Femoral=2 8:41:28 Left Pulses: Dave Ped=3, Femoral=2 Neurological: State=Alert, Ox3, PLATA Respiration: Resp=16 B/min, SpO2=95 % 8:42:40 MD=934 bpm, CMOS=985/83 mmhg, SpO2=95.0 %, Resp=16 B/min, Pain=0, Jack=10, Barros=2 8:43:12 Bilateral groins prepped with 2% chlorhexidine, and draped after a 3 minute waiting time. 8:47:41 HR=71 bpm, PAKP=750/82 mmhg, SpO2=96.0 %, Resp=19 B/min, Pain=0, Jack=10, Barros=2 8:49:12 Pressure channel 1 zeroed. 8:51:56 Reference ECG taken 8:52:46 HR=71 bpm, NRLI=744/75 mmhg, SpO2=95.0 %, Resp=20 B/min, Pain=0, Jack=10, Barros=2 8:57:43 HR=72 bpm, WVZG=242/80 mmhg, SpO2=95.0 %, Resp=18 B/min, Pain=0, Jack=10, Barros=2 Time Out. Correct patient, correct procedure, correct physician, power injector not loaded with contrast with surgical 9:01:19 team present. Time Out Concurred by MD and individual staff in procedure. 9:01:34 Case Start Patient arrived on 2 mg VERSED given by Cl Barragan RN in Left Antecubital via Peripheral IV. O rdered by Elana, 9:02:04 Clovis. Patient arrived on 20 mL 1% XYLOCAINE given by Cl Barragan RN in Right Groin via Subcutaneous. Ordered by Elana, 9:02:15 Clovis. 9:02:41 Access site was Left Femoral Artery. 9:02:42 A SHEATH, FR6.5 PRELUDE 11CM FR 6.5 was advanced into the Fem Art (right) using the Modified Seldinger technique. A JL 4.0 INFINITI CATHETER FR 6 was advanced over a wire. OMNIPAQUE, 350 MG, 150ML 150ML was use d for 9:03:11 injections. 9:03:13 HR=73 bpm, FLOB=969/85 mmhg, SpO2=94.0 %, Resp=18 B/min, Pain=0, Jack=10, Barros=2 9:03:19 Patient arrived on 2 l/min OXYGEN given by Cl Barragan RN via Nasal. Ordered by Gian Huitron 9:04:07 Catheter was removed A 3DRC INFINITI CATHETER FR 6 was advanced over a wire. OMNIPAQUE, 350 MG, 150ML 150ML was used for 9:04:38 injections. 9:05:54 Catheter was removed A JL 4.5 INFINITI CATHETER FR 6 was advanced over a wire. OMNIPAQUE, 350 MG, 150ML 150ML was use d for 9:05:55 injections. 9:06:36 The LCA was injected and visualized at various angles. OMNIPAQUE, 350 MG, 150ML 150ML used. Recorded Pressure: Ao, HR=67, Condition=Condition 1 9:06:44 (Aorta) Ao 111/60/81 9:07:47 HR=76 bpm, XCQX=268/76 mmhg, SpO2=94.0 %, Resp=19 B/min, Pain=0, Jack=10, Barros=2 9:08:45 Catheter was removed 9:08:56 A PIGTAIL STR INFINITI CATHETER FR 6 was advanced over a wire. contrast was used for injecti ons. 9:09:39 LV INJECTOR LOADED WITH CONTRAST AND VERIFIED TO BE FREE OF AIR BY CL BARRAGAN RN Recorded Pressure: LV, HR=68, Condition=Condition 1 9:10:02 (Left Ventricle) LV 115/8/13 9:11:31 The LV was injected at 12 cc/sec for a total of 40. OMNIPAQUE, 300 MG, 50ML 50ML used. Recorded Pressure: LV, Ao, HR=65, Condition=Condition 1 9:11:45 (Left Ventricle) LV 114/9/16, (Aorta) Ao 112/52/75 9:12:27 An injection in the Fem Art (right) was made through the SHEATH, FR6.5 PRELUDE 11CM FR 6.5. 9:12:44 HR=71 bpm, UIQQ=746/72 mmhg, SpO2=95.0 %, Resp=20 B/min, Pain=0, Jack=10, Barros=2 9:12:44 Catheter(s) removed without difficulty 9:13:20 VASCADE, FR6 CLOSURE SYSTEM FR 6\7 placement in the Fem Art (right) 9:14:01 Case End 9:14:04 Sterile dressing applied to site 9:14:06 No case complications noted. 9:14:07 Cine recording checked. 9:14:10 Bedside Report will be given. 9:14:14 Contrast Scanned 9:14:16 A Left Heart Cath was performed. 9:17:43 HR=73 bpm, VKOP=757/86 mmhg, SpO2=95.0 %, Resp=20 B/min, Pain=0, Jack=10, Barros=2 Assessment: Final Case, HR=73 BPM, NUGL=689/86 mmhg, Chest Pain=0, Edema=None, Color=Normal, S kin = Warm, Dry Right Pulses: Dave Ped=3, Femoral=2 9:20:28 Left Pulses: Dave Ped=3, Femoral=2 Neurological: State=Alert, Ox3, PLATA Respiration: Resp=20 B/min, SpO2=95 %, O2=2 lpm 9:20:39 Patient moved to stretcher 9:20:42 Clinical correlaton risk stratification. 9:21:15 Vitals capture stopped. End Study - Contrast Media Used In Study Contrast Total Opened (mL) Total Used (mL) Total Wasted (mL) Omnipaque 80 80 0 End Study - Maximum Contrast Load Max Contrast Load (mL) 460.0 End Study - Radiation Exposure Fluoro Time (minutes) 1.8 End Study - Patient Disposition Complications Transferred To No Telemetry Bed
[2017-08-08] MEDS ORDERED: SODIUM CHLOR 0.9% 1000 ML INJ 1,000 ML IV ONE (09:24)
--- NOTE | 2017-08-08 09:28 | PD.CARD.PN ---
Subjective Subjective Remarks No further arm or CP, dyspnea, palpitations, dizziness. Objective Medications Item Value Date Time Atorvastatin 80 mg 08/08/17 0900 Calcium DAILY/PO (Lipitor) Enalapril Maleate 2.5 mg 08/08/17 0900 (Vasotec) DAILY/PO Aspirin 325 mg 08/07/17 0900 (Aspirin) DAILY/PO Metoprolol 50 mg 08/06/17 2100 Tartrate Q12HR/PO (Lopressor) Current Medications Medications (Trade) Dose Ordered Sig/Arpit Route Start Time Stop Time Status Last Admin (NS Flush) 2 ml UNSCH PRN IV FLUSH 08/06/17 12:15 (NS Flush) 2 ml BID IV FLUSH 08/06/17 21:00 (Tylenol) 650 mg Q4H PRN PO 08/06/17 12:15 (Zofran Inj) 4 mg Q6H PRN IVP 08/06/17 12:15 (Ambien) 5 mg HS PRN PO 08/06/17 12:15 (Narcan Inj) 0.4 mg UNSCH PRN IV PUSH 08/06/17 12:15 (Milk Of Magnesia Liq) 30 ml Q12H PRN PO 08/06/17 12:15 (Senokot) 17.2 mg Q12H PRN PO 08/06/17 12:15 (Dulcolax Supp) 10 mg DAILY PRN RECTAL 08/06/17 12:15 (Lactulose Liq) 30 ml DAILY PRN PO 08/06/17 12:15 (Aspirin) 325 mg DAILY PO 08/07/17 09:00 08/07/17 09:16 (Lopressor) 50 mg Q12HR PO 08/06/17 21:00 08/07/17 21:36 Sodium Chloride 1,000 ml @ 100 mls/hr Q10H IV 08/06/17 15:05 08/11/17 15:04 08/07/17 21:05 (Benadryl) 50 mg MANAGER QUALITY PO 08/06/17 15:15 08/10/17 15:14 (Valium) 10 mg MANAGER QUALITY PO 08/06/17 15:15 08/10/17 15:14 (Versed Inj) 1 mg MANAGER QUALITY IV PUSH 08/06/17 15:15 1/23/18 15:14 (Benadryl) 50 mg MANAGER QUALITY PO 08/07/17 11:15 08/11/17 11:14 (Valium) 10 mg MANAGER QUALITY PO 08/07/17 11:15 08/11/17 11:14 (Versed Inj) 1 mg MANAGER QUALITY IV PUSH 08/07/17 11:15 08/11/17 11:14 (Lipitor) 80 mg DAILY PO 08/08/17 09:00 (Vasotec) 2.5 mg DAILY PO 08/08/17 09:00 Vital Signs / I&O Vital Signs Date Time Temp Pulse Resp B/P (MAP) Pulse Ox O2 Delivery O2 Flow Rate FiO2 08/08/17 08:00 97.9 72 20 119/73 (88) 95 08/08/17 07:44 73 08/08/17 04:00 97.5 77 21 100/59 (73) 98 08/08/17 04:00 76 08/08/17 04:00 Room Air 08/08/17 00:00 65 08/08/17 00:00 98.0 75 19 106/72 (83) 95 08/07/17 20:00 75 08/07/17 20:00 97.8 73 21 116/67 (83) 96 08/07/17 20:00 Room Air 08/07/17 16:00 97.3 75 18 119/77 (91) 92 08/07/17 12:00 97.4 69 18 108/76 (87) 94 I/O 08/07/17 08/07/17 08/07/17 08/08/17 08/08/17 08/08/17 07:00 15:00 23:00 07:00 15:00 23:00 Intake Total 1983 ml 960 ml 240 ml Output Total 2100 ml 425 ml 850 ml Balance -117 ml 535 ml -610 ml Intake Oral 960 ml 960 ml 240 ml IV Total 1023 ml Output Urine Total 2100 ml 425 ml 850 ml # Voids 1 # Bowel Movements 1 0 Physical Exam GENERAL: Well developed, well nourished. No acute distress. HEENT: Jugular venous pressure is normal. CHEST: Lungs clear to auscultation anteriorly. CARDIAC: Regular rate and rhythm without S3, S4, or murmur. ABDOMEN: Soft, nontender, no hepatosplenomegaly. Bowel sounds present. EXTREMITIES: No clubbing, cyanosis, or edema. Laboratory Laboratory Tests Test 08/07/17 09:56 08/08/17 03:52 White Blood Count 10.7 TH/MM3 12.1 TH/MM3 Red Blood Count 5.17 MIL/MM3 4.87 MIL/MM3 Hemoglobin 15.6 GM/DL 14.6 GM/DL Hematocrit 45.6 % 43.6 % Mean Corpuscular Volume 88.1 FL 89.5 FL Mean Corpuscular Hemoglobin 30.2 PG 30.1 PG Mean Corpuscular Hemoglobin Concent 34.2 % 33.6 % Red Cell Distribution Width 14.7 % 15.0 % Platelet Count 224 TH/MM3 220 TH/MM3 Mean Platelet Volume 9.9 FL 10.2 FL Neutrophils (%) (Auto) 62.3 % Lymphocytes (%) (Auto) 22.9 % Monocytes (%) (Auto) 8.8 % Eosinophils (%) (Auto) 4.7 % Basophils (%) (Auto) 1.3 % Neutrophils # (Auto) 6.7 TH/MM3 Lymphocytes # (Auto) 2.5 TH/MM3 Monocytes # (Auto) 0.9 TH/MM3 Eosinophils # (Auto) 0.5 TH/MM3 Basophils # (Auto) 0.1 TH/MM3 CBC Comment DIFF FINAL Differential Comment Blood Urea Nitrogen 16 MG/DL Creatinine 1.00 MG/DL Random Glucose 93 MG/DL Calcium Level 8.2 MG/DL Sodium Level 141 MEQ/L Potassium Level 4.0 MEQ/L Chloride Level 109 MEQ/L Carbon Dioxide Level 26.0 MEQ/L Anion Gap 6 MEQ/L Estimat Glomerular Filtration Rate 73 ML/MIN Assessment and Plan Problem List: (1) NSTEMI (non-ST elevated myocardial infarction) ICD Codes: I21.4 - Non-ST elevation (NSTEMI) myocardial infarction Status: Acute Plan: Stable overnight. No further angina. Cath today interestingly shows only minimal to mild CAD, EF 55%, overall no evidence for myocarditis. Rec continue beta sarthak, ANNA-I, aspirin. OK for discharge later today from my standpoint. (2) Chronic atrial fibrillation ICD Codes: I48.2 - Chronic atrial fibrillation Status: Chronic Plan: Stable, chronic atrial fib. Resume Eliquis (3) Hyperlipidemia ICD Codes: E78.5 - Hyperlipidemia, unspecified Status: Chronic Plan: Very suboptimal lipid profile. REC continue high dose statin. Code Status full code Discussed Condition With patient and his family Problem Qualifiers (1) Hyperlipidemia: Qualified Codes: E78.2 - Mixed hyperlipidemia Clovis Huitron MD Aug 08, 2017 09:28
[2017-08-08] MEDS ORDERED: ATROPINE SULFATE 1 MG/ML VIAL IVP PRN (09:30)
[2017-08-08] MEDS ORDERED: SODIUM CHLOR 0.9% 250 ML INJ 250 ML IV PRN (09:30)
[2017-08-08] MEDS ORDERED: ONDANSETRON HCL 4 MG/2 ML VIAL IV PUSH PRN (09:30)
--- NOTE | 2017-08-08 10:10 | MA ---
cc: MARINA GAUTHIER M.D., GLENN H. M.D. DATE: 08/08/2017. PROCEDURE PERFORMED: Left heart catheterization, selective coronary angiography, left ventriculography. PROCEDURE NOTE: The patient was brought to the cardiac catheterization laboratory in a fasting state after having signed informed consent. The right groin was prepped and draped as per policy and anesthetized with 1% lidocaine. Arterial access was obtained via the right femoral artery and a 6-Salvadorean sheath placed. Coronary arteriography was performed using 6-Salvadorean Gerhard left 4.5 and right progressive catheters. Left ventriculography was done using a standard 6-Salvadorean pigtail. There were no apparent immediate complications. His arteriotomy site was closed with VASCADE. HEMODYNAMIC DATA: Left ventricle 114 with an end-diastolic pressure of 15. Aorta 112/52 with a mean of 76. There was no significant transvalvular aortic gradient on pullback of the pigtail catheter. CORONARY ARTERIOGRAPHY: The left main may have up to 20% ostial stenosis. The left anterior descending is a medium-sized vessel giving rise to a fairly large diagonal. There are diffuse minimal luminal irregularities of the LAD and diffuse minimal to mild luminal irregularities of the diagonal. The left circumflex is a small vessel giving rise to medium-sized obtuse marginal. In the mid obtuse marginal, there may be up to 20% eccentric irregular stenosis. The right coronary artery is a medium-sized dominant vessel which is diffusely mildly calcified. There is diffuse proximal to mid disease which may result in up to 30% stenosis. LEFT VENTRICULOGRAPHY: Contrast injection of the left ventricle reveals no definite segmental wall motion abnormalities. Ejection fraction is estimated at 55%. CONCLUSIONS: 1. Overall minimal to mild three-vessel coronary artery disease. 2. Right dominant system. 3. Normal left ventricular function with estimated ejection fraction of 55%. MD FERMIN Javier/BRUNO /9:18 AM /10:03 AM [facility] CENTERAnjelica
--- NOTE | 2017-08-08 11:57 | HHI.FPPN ---
Subjective Remarks Patient seen and examined bedside today after his cardiac catheterization. Patient continues to deny any chest pain/shortness of breath/dizziness since the night before his arrival to the ED. He is inquiring as to when he can go home and what medication till present time. Acute events overnight Objective Vitals Vital Signs Date Time Temp Pulse Resp B/P (MAP) Pulse Ox O2 Delivery O2 Flow Rate FiO2 08/08/17 11:38 98.0 70 19 131/78 (95) 96 08/08/17 11:00 71 08/08/17 10:00 96 Room Air 08/08/17 10:00 70 08/08/17 09:50 73 18 114/71 (85) 98 08/08/17 08:00 83 08/08/17 08:00 97.9 72 20 119/73 (88) 95 08/08/17 07:44 73 08/08/17 04:00 97.5 77 21 100/59 (73) 98 08/08/17 04:00 76 08/08/17 04:00 Room Air 08/08/17 00:00 65 08/08/17 00:00 98.0 75 19 106/72 (83) 95 08/07/17 20:00 75 08/07/17 20:00 97.8 73 21 116/67 (83) 96 08/07/17 20:00 Room Air 08/07/17 16:00 97.3 75 18 119/77 (91) 92 08/07/17 12:00 97.4 69 18 108/76 (87) 94 I/O 08/07/17 08/07/17 08/07/17 08/08/17 08/08/17 08/08/17 07:00 15:00 23:00 07:00 15:00 23:00 Intake Total 1983 ml 960 ml 240 ml Output Total 2100 ml 425 ml 850 ml Balance -117 ml 535 ml -610 ml Intake Oral 960 ml 960 ml 240 ml IV Total 1023 ml Output Urine Total 2100 ml 425 ml 850 ml # Voids 1 # Bowel Movements 1 0 Result Diagram: 08/08/172 08/08/17 0352 Objective Remarks Vital signs noted. Gen. appearance: Very healthy-appearing gentleman, normal affect, good eye contact, pleasant in conversation. Lying flat for 2 hours status post cardiac catheterization HEENT: Grossly nonlocalizing. Lungs: Clear to auscultation. Cardiac: Irregular rhythm, no S3, soft systolic left sternal border. Abdomen: Soft and benign, no masses or organomegaly appreciated on palpation. Extremities: Warm and dry, no ankle edema. Bounding distal pulses. A/P Assessment and Plan Clinical attending assessment: 71-year-old gentleman admitted with a history strongly consistent with angina pectoris. Risk factors reviewed, statin therapy, anticipate cardiac catheter and probable intervention. Case reviewed and discussed with the resident team. Agree with plan of care is discussed with me and documented in the resident note.Case reviewed and discussed with the resident team. Agree with plan of care is discussed with me and documented in the resident note. Discharge Planning Discharge today Problem List: (1) NSTEMI (non-ST elevated myocardial infarction) ICD Codes: I21.4 - Non-ST elevation (NSTEMI) myocardial infarction Status: Acute Plan: Pt found to be tachycardic with elevated troponin x1 of 0.79, currently asymptomatic. -hx of chest tightness, diaphoresis, BL arm aching 2 days ago -c/w asa 325mg QD -EKG: A fib, rate controlled, no significant change from prior ekg Cardiology consulted, appreciate recommendations -Catheter today shows only minimal to mild CAD, EF 55%, no evidence for myocarditis -Continue beta sarthak, aspirin, ANNA inhibitor per cardio , on a high-dose statin (2) Atrial fibrillation ICD Codes: I48.91 - Unspecified atrial fibrillation Plan: -hold eliquis -pt placed on tele -continue to monitor -Verapamil to beta sarthak by cardiology (3) Nutrition, metabolism, and development symptoms ICD Codes: R63.8 - Other symptoms and signs concerning food and fluid intake Plan: Fluids: Electrolytes: Nutrition: heart healthy Problem Qualifiers (1) Atrial fibrillation: Qualified Codes: I48.2 - Chronic atrial fibrillation Melony Han MD R2 Aug 08, 2017 11:57
[2017-08-08] MEDS ORDERED: ASPI-516 CHEW (12:02)
[2017-08-08] MEDS ORDERED: METO-309 PO (12:02)
[2017-08-08] MEDS ORDERED: ENAL2.5T PO (12:02)
[2017-08-08] MEDS ORDERED: ATOR40TA16 PO (12:02)
[2017-08-08] MEDS ORDERED: NITR1SUB3 SL (12:02)
--- NOTE | 2017-08-08 12:02 | HHI.DCPOC ---
Discharge Care Plan Diagnosis: (1) NSTEMI (non-ST elevated myocardial infarction) (2) Atrial fibrillation (3) Hyperlipidemia Goals to Promote Your Health * To prevent worsening of your condition and complications * To maintain your health at the optimal level Directions to Meet Your Goals Take your medications as prescribed Follow your dietary instruction Follow activity as directed Keep your appointments as scheduled Take your immunizations and boosters as scheduled If your symptoms worsen call your PCP, if no PCP go to Urgent Care Center or Emergency Room Smoking is Dangerous to Your Health. Avoid second hand smoke Call the 24-hour hour crisis hotline for domestic abuse at Melony Han MD R2 Aug 08, 2017 12:02
[2017-08-08] MEDS ORDERED: IOHEXOL 350 MG/ML 100 ML BTL (for Cath Lab) OTHER ONE (14:04)
[2017-08-08] MEDS ORDERED: APIXABAN 5 MG TABLET PO SCH (21:00)
== END 2017-08-08 14:05 | disposition home or self-care (01) | DRG 282 ==
LOC: NEPE 08:55 → NEDA 10:56 → N04B 14:50 → HCIN 08-08 09:35
PROVIDERS: ADMIT Family Medicine; ATTEND Family Medicine
PROC: 4A023N7 Measurement of Cardiac Sampling and Pressure, Left Heart, Percutaneous Approach (ICD-10-PCS; principal; 2017-08-08)
PROC: B2151ZZ Fluoroscopy of Left Heart using Low Osmolar Contrast (ICD-10-PCS; 2017-08-08)
PROC: B2111ZZ Fluoroscopy of Multiple Coronary Arteries using Low Osmolar Contrast (ICD-10-PCS; 2017-08-08)
DX: I21.4 Non-ST elevation (NSTEMI) myocardial infarction (principal); J44.9 Chronic obstructive pulmonary disease, unspecified; I48.2 Chronic atrial fibrillation; I25.10 Atherosclerotic heart disease of native coronary artery without angina pectoris; R00.0 Tachycardia, unspecified; F17.210 Nicotine dependence, cigarettes, uncomplicated; E78.2 Mixed hyperlipidemia; Z79.01 Long term (current) use of anticoagulants; M79.601 Pain in right arm; R11.2 Nausea with vomiting, unspecified
CPT/HCPCS: 80048; 80053; 80061; 82550; 82552; 83735; 84484; 85025; 85027; 85610; 85730; 93005; 93306; 93458; C1769; C1893; J1644; J2250; J7030; Q9967